=== PATIENT | female | born 1995 | race Caucasian/White ===

== ENCOUNTER 2020-06-21 10:28 | Emergency (ER) | payer OTHER ==
[2020-06-21 11:33] LABS: MUDS CUTOFF CONCENTRATIONS CUTOFF CONC BELOW:
--- NOTE | 2020-06-21 11:37 | XRAY Report ---
PROCEDURE: Chest 1 View X-Ray INDICATIONS: palpitations TECHNIQUE: One view of the chest was acquired. COMPARISON: None FINDINGS: Overlying EKG wires. Surgical changes and devices: None. Lungs and pleura: No pleural effusions or pneumothorax. Lungs are clear. Mediastinum: Mediastinal contours appear normal. Heart size is normal. Bones and chest wall: No suspicious bony lesions. Overlying soft tissues appear unremarkable. IMPRESSION: No evidence of a cardiopulmonary abnormality. Reviewed by: Lucas Peres DO on 06/21/2020 10:36 AM [facility] Approved by: Lucas Peres DO on 06/21/2020 10:36 AM [facility] Station ID: [id number]
[2020-06-21 11:41] LABS: BILIRUBIN,URINE NEGATIVE (NEGATIVE); CLARITY,URINE CLEAR (CLEAR); GLUCOSE, URINE (UA) NEGATIVE (NEGATIVE); KETONES,URINE (UA) NEGATIVE (NEGATIVE); LEUKOCYTE ESTERASE, URINE NEGATIVE (NEGATIVE); NITRITE,URINE NEGATIVE (NEGATIVE); OCCULT BLOOD,URINE NEGATIVE (NEGATIVE); PROTEIN,URINE NEGATIVE (NEGATIVE); UROBILINOGEN,URINE 0.2 (NORMAL) E.U./dL (NORMAL)
[2020-06-21 11:42] LABS: HCG UR QUAL NEGATIVE
[2020-06-21 11:48] LABS: AMPHETAMINE SCREEN,URINE NEGATIVE (NEGATIVE); BENZODIAZEPINES SCREEN, URINE NEGATIVE (NEGATIVE); COCAINE SCREEN URINE NEGATIVE (NEGATIVE); METHADONE SCREEN, URINE NEGATIVE (NEGATIVE); METHAMPHETAMINES SCREEN, URINE NEGATIVE (NEGATIVE); OPIATE SCREEN, URINE NEGATIVE (NEGATIVE); OXYCODONE SCREEN, URINE NEGATIVE (NEGATIVE); PROPOXYPHENE SCREEN, URINE NEGATIVE (NEGATIVE); TRICYCLIC ANTIDEPRESSANT,URINE NEGATIVE (NEGATIVE)
[2020-06-21 11:49] LABS: BASOPHILS % (AUTO) 0.4 %; EOSINOPHILS # (AUTO) 0.1 10^3/uL (0.0-0.7); EOSINOPHILS % (AUTO) 1.1 %; HGB - HEMOGLOBIN 13.8 g/dL (12.0-16.0); LYMPHOCYTES # (AUTO) 1.2 10^3/uL (1.5-3.5); LYMPHOCYTES % (AUTO) 13.4 %; MEAN CORPUSCULAR HGB CONC 32.9 g/dL (32.0-36.0); MEAN CORPUSCULAR VOLUME 91.1 fL (81.0-99.0); MEAN PLATELET VOLUME 9.5 fL (7.9-10.8); MONOCYTES # (AUTO) 0.7 10^3/uL (0.0-1.0); MONOCYTES % (AUTO) 7.2 %; NEUTROPHILS # (AUTO) 7.2 10^3/uL (1.5-6.6); NEUTROPHILS % (AUTO) 77.6 %; PLT - PLATELET COUNT 269 10^3/uL (130-450); RED CELL DISTRIBUTION WIDTH 13.7 % (12.0-15.0); WHITE BLOOD COUNT 9.2 x10^3/uL (4.8-10.8)
--- NOTE | 2020-06-21 12:03 | ED Physician Documentation ---
History of Present Illness - Stated complaint Stated Complaint: SOA/HIGH HEART RATE - Chief complaint Chief Complaint: Cardiac - History obtained from History obtained from: Patient - History of Present Illness Timing: Today Pain level max: 0 Pain level now: 0 - Additonal information Additional information: Patient is a 24-year-old female who presents to the emergency department stating she has had intermittent palpitations for years. She states that today her heart rate felt faster than usual and she felt mildly short of breath. She states this happens nearly daily. Sometimes lasts all day, sometimes a few minutes. She states she has never been worked up for this. She had been on Vyvanse in the past for ADHD, but is no longer taking this as of about 5 weeks ago. She also states that she used to drink heavily, but also quit all alcohol use about 5 weeks ago as well. She states that she is attempting to become . No recent surgeries or travel. No recent plane rides. 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 : None HEENT: None Psych: ADD/ADHD Musculoskeletal: None Derm: None - Past Surgical History Past Surgical History: Yes - Present Medications Home Medications: Ambulatory Orders Medication Instructions Recorded Confirmed No Known Home Medications 06/21/20 06/21/20 - Allergies Allergies/Adverse Reactions: Allergies Allergy/AdvReac Type Severity Reaction Status Date / Time No Known Drug Allergies Allergy Verified 06/21/20 10:39 - Social History Does the pt smoke?: No Smoking Status: Never smoker Does the pt drink ETOH?: No Does the pt have substance abuse?: No - Immunizations Immunizations are current?: Yes PD ED PE NORMAL - Vitals Vital signs reviewed: Yes - General General: Alert and oriented X 3, No acute distress - HEENT HEENT: Moist mucous membranes - Neck Neck: Supple, no meningeal sign - Cardiac Cardiac: RRR, Strong equal pulses - Respiratory Respiratory: No respiratory distress, Clear bilaterally - Abdomen Abdomen: Soft, Non tender, Non distended - Derm Derm: Warm and dry - Extremities Extremities: No edema, No calf tenderness / cord - Neuro Neuro: Alert and oriented X 3 - Psych Psych: Normal mood, Normal affect Results - Vitals Vitals: Vital Signs - 24 hr 06/21/20 06/21/20 06/21/20 10:35 11:02 12:26 Temperature 36.4 C L 37.1 C Heart Rate 124 H 114 H 101 H Respiratory 17 16 16 Rate Blood Pressure 154/107 H 148/98 H 129/94 H O2 Saturation 100 100 100 Oxygen O2 Source Room air - EKG (time done) 1228 Rate: Rate (enter#) (98) Rhythm: NSR [place]: Normal Intervals: Normal [place] QRS: Normal Ischemia: Normal ST segments - Labs Labs: Laboratory Tests 06/21/20 06/21/20 06/21/20 11:10 11:40 11:42 WBC 9.2 RBC 4.60 Hgb 13.8 Hct 41.9 MCV 91.1 MCH 30.0 MCHC 32.9 RDW 13.7 Plt Count 269 MPV 9.5 Neut # (Auto) 7.2 H Lymph # (Auto) 1.2 L [place] # (Auto) 0.7 Eos # (Auto) 0.1 Baso # (Auto) 0.0 Absolute Nucleated RBC 0.00 Nucleated RBC % 0.0 D-Dimer < 200.0 L Sodium Potassium Chloride Carbon Dioxide Anion Gap BUN Creatinine Estimated GFR (MDRD) Glucose Calcium Total Bilirubin AST ALT Alkaline Phosphatase Total Protein Albumin Globulin Albumin/Globulin Ratio Lipase TSH Free T4 Urine Color YELLOW Urine Clarity CLEAR Urine pH 6.0 Ur Specific [place] <=1.005 Urine Protein NEGATIVE Urine Glucose (UA) NEGATIVE Urine Ketones NEGATIVE Urine Occult Blood NEGATIVE Urine Nitrite NEGATIVE Urine Bilirubin NEGATIVE Urine Urobilinogen 0.2 (NORMAL) Ur Leukocyte Esterase NEGATIVE Ur Microscopic Review NOT INDICATED Urine Culture Comments NOT INDICATED Urine HCG, Qual NEGATIVE Urine Opiates Screen NEGATIVE Ur Oxycodone Screen NEGATIVE Urine Methadone Screen NEGATIVE Ur Propoxyphene Screen NEGATIVE Ur Barbiturates Screen NEGATIVE Ur Tricyclics Screen NEGATIVE Ur Phencyclidine Scrn NEGATIVE Ur Amphetamine Screen NEGATIVE U Methamphetamines Scrn NEGATIVE U Benzodiazepines Scrn NEGATIVE Urine Cocaine Screen NEGATIVE U Cannabinoids Screen NEGATIVE 06/21/20 06/21/20 11:42 11:42 WBC RBC Hgb Hct MCV MCH MCHC RDW Plt Count MPV Neut # (Auto) Lymph # (Auto) [place] # (Auto) Eos # (Auto) Baso # (Auto) Absolute Nucleated RBC Nucleated RBC % D-Dimer Sodium 138 Potassium 4.2 Chloride 98 L Carbon Dioxide 25 Anion Gap 15.0 H BUN 21 H Creatinine 1.0 Estimated GFR (MDRD) 68 L Glucose 102 H Calcium 9.8 Total Bilirubin 1.6 H AST 46 H ALT 41 Alkaline Phosphatase 46 Total Protein 8.5 H Albumin 5.0 Globulin 3.5 Albumin/Globulin Ratio 1.4 Lipase 29 TSH 1.31 Free T4 0.99 Urine Color Urine Clarity Urine pH Ur Specific [place] Urine Protein Urine Glucose (UA) Urine Ketones Urine Occult Blood Urine Nitrite Urine Bilirubin Urine Urobilinogen Ur Leukocyte Esterase Ur Microscopic Review Urine Culture Comments Urine HCG, Qual Urine Opiates Screen Ur Oxycodone Screen Urine Methadone Screen Ur Propoxyphene Screen Ur Barbiturates Screen Ur Tricyclics Screen Ur Phencyclidine Scrn Ur Amphetamine Screen U Methamphetamines Scrn U Benzodiazepines Scrn Urine Cocaine Screen U Cannabinoids Screen - Rads (name of study) cxr Radiology: Prelim report reviewed, EMP read contemporaneously, See rad report (no acute findings) PD MEDICAL DECISION MAKING - ED course Complexity details: reviewed results, re-evaluated patient, considered differential, d/w patient ED course: 24-year-old female with tachycardia, unclear etiology. No evidence of acute PE. Normal thyroid. Normal laboratory testing. No acute findings on EKG or chest x-ray. Patient is well-appearing, nontoxic. Afebrile. No hypoxia. No chest pain. No shortness of breath. No calf swelling. No evidence of DVT. We will have her follow-up with her doctor for further care. No arrhythmias on telemetry. Patient counseled regarding signs and symptoms for which I believe and urgent re-evaluation would be necessary. Patient with good understanding of and agreement to plan and is comfortable going home at this time This document was made in part using voice recognition software. While efforts are made to proofread this document, sound alike and grammatical errors may occur. Departure - Departure Disposition: 01 Home, Self Care Clinical Impression: Palpitations, Tachycardia Condition: Good Instructions: ED Palpitations Follow-Up: [facility] [Provider Group] [facility] [Provider Group] - Within 1 week Comments: The cause of your symptoms is unclear. Follow-up with the [employer] base for further care. Return if you worsen. You will likely need an echocardiogram, Holter/teletypesetter monitor, and possibly a referral to cardiology for further work- up. Your EKG, chest x-ray and laboratory testing do not show any acute abnormalities today. I would avoid stimulants such as coffee, energy drinks while you are awaiting further work-up. Discharge Date/Time: 06/21/20 14:05
[2020-06-21 12:06] LABS: ALBUMIN/GLOBULIN RATIO 1.4 (1.0-2.2); BILIRUBIN,TOTAL 1.6 mg/dL (0.2-1.0); CALCIUM 9.8 mg/dL (8.5-10.3); TOTAL PROTEIN 8.5 g/dL (6.7-8.2)
[2020-06-21 12:20] LABS: THYROID STIMULATING HORMONE 1.31 uIU/mL (0.34-5.60)
[2020-06-21 12:22] LABS: FREE T4 (FREE THYROXINE) 0.99 ng/dL (0.58-1.64)
[2020-06-21 12:27] VITALS: BP 129/94
== END 2020-06-21 14:05 | disposition home or self-care (01) ==
LOC: ED 10:28
DX: R00.2 Palpitations (principal); R00.0 Tachycardia, unspecified
CPT/HCPCS: 36415; 80053; 80306; 81001; 81003; 81025; 83690; 84439; 84443; 85025; 85379; 87086; 93005; 99284

== ENCOUNTER 2020-06-22 10:22 | Emergency (ER) | payer OTHER ==
--- NOTE | 2020-06-22 11:51 | ED Physician Documentation ---
History of Present Illness - Stated complaint Stated Complaint: SOA/HIGH PULSE - Chief complaint Chief Complaint: General - History obtained from History obtained from: Patient - Additonal information Additional information: Pt comes to the emergency department for elevated heart rate and dyspnea. Patient was just seen here yesterday for this, and she states she is mainly concerned because she found [place] and is not sure what to do. The patient denies any worsening of her symptoms. She had a full work-up yesterday which was unremarkable. Her heart rate here is in the 80s. Review of Systems Ten Systems: 10 systems reviewed and negative Constitutional: reports: Reviewed and negative Eyes: reports: Reviewed and negative Ears: reports: Reviewed and negative Nose: reports: Reviewed and negative Throat: reports: Reviewed and negative Cardiac: reports: Palpitations Respiratory: reports: Dyspnea GI: reports: Reviewed and negative : reports: Reviewed and negative Skin: reports: Reviewed and negative Musculoskeletal: reports: Reviewed and negative Neurologic: reports: Reviewed and negative Psychiatric: reports: Reviewed and negative Endocrine: reports: Reviewed and negative Immunocompromised: reports: Reviewed and negative PD PAST MEDICAL HISTORY - Past Medical History Cardiovascular: None Respiratory: None Neuro: Other Endocrine/Autoimmune: None GI: None 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 HEENT: None Psych: ADD/ADHD Musculoskeletal: None Derm: None - Past Surgical History Past Surgical History: Yes - Present Medications Home Medications: Ambulatory Orders Medication Instructions Recorded Confirmed Acetaminophen [Tylenol] 1 - 2 tab PO DAILY PRN 06/22/20 06/22/20 - Allergies Allergies/Adverse Reactions: Allergies Allergy/AdvReac Type Severity Reaction Status Date / Time No Known Drug Allergies Allergy Verified 06/22/20 10:32 - Social History Does the pt smoke?: No Smoking Status: Never smoker Does the pt drink ETOH?: No Does the pt have substance abuse?: No - Immunizations Immunizations are current?: Yes PD ED PE NORMAL - Vitals Vital signs reviewed: Yes - General General: Alert and oriented X 3, No acute distress - HEENT HEENT: Atraumatic, PERRL, EOMI, Moist mucous membranes - Neck Neck: Supple, no meningeal sign - Cardiac Cardiac: RRR, No murmur, Strong equal pulses - Respiratory Respiratory: No respiratory distress (Patient is sitting in bed talking comfortably, without labored respirations.), Clear bilaterally - Abdomen Abdomen: Soft, Non tender, Non distended - Derm Derm: Warm and dry - Extremities Extremities: No deformity - Neuro Neuro: Alert and oriented X 3 - Psych Psych: Normal mood, Normal affect Results - Vitals Vitals: Oxygen O2 Source Room air PD MEDICAL DECISION MAKING - ED course Complexity details: considered differential, d/w patient ED course: I discussed with the patient that she continues to display no evidence of an acute or emergent condition at this time. We did review the pt's discharge instructions, which contained follow-up for family practice at the [facility], [place] Pt states she will call the [facility] today. I do not find indication for any further work-up today. We have discussed the usual indications for return. Departure - Departure Disposition: 01 Home, Self Care Clinical Impression: Palpitations Condition: Stable Follow-Up: Jovani Vazquez MD [Credentialed Staff Provider] - Solomon Tellez MD [Provider Admit Priv/Credential] - Katarzyna Arredondo MD [Credentialed Staff Provider] - BIPIN CROFT MD [Provider Admit Priv/Credential] - Gianluca Tony MD [Provider Admit Priv/Credential] - Discharge Date/Time: 06/22/20 12:00
[2020-06-22 11:56] VITALS: BP 119/88
== END 2020-06-22 12:00 | disposition home or self-care (01) ==
LOC: ED 10:22
DX: R00.2 Palpitations (principal)
CPT/HCPCS: 99282; 99283

== ENCOUNTER 2020-07-22 10:15 | Outpatient (CLI) | payer OTHER | END 2020-07-22 10:16 | disposition home or self-care (01) | LOC: DI 10:15 | PROVIDERS: ATTEND Physician Assistant Medical | DX: R07.9 Chest pain, unspecified (principal); R00.2 Palpitations; R06.09 Other forms of dyspnea; I07.1 Rheumatic tricuspid insufficiency | CPT/HCPCS: 93306 ==

== ENCOUNTER 2020-07-23 08:02 | Outpatient (CLI) | payer OTHER ==
--- NOTE | 2020-07-23 10:42 | CARDIAC PROCEDURE NOTE ---
DATE OF SERVICE: 07/23/2020 Physician: Carola Chan MD, [facility] INDICATION: Exertional dyspnea, chest pain, palpitations. CARDIAC RISK FACTORS: None known.. DESCRIPTION OF PROCEDURE: After signing informed consent, the patient underwent a Nino-protocol treadmill stress test. No cardiac imaging was ordered with this test. RESTING HEART RATE: 75 (the patient took her Propranolol 20 mg dose this morning). PEAK HEART RATE: 164 (83% predicted maximum heart rate for age). RESTING BLOOD PRESSURE: 128/86. PEAK BLOOD PRESSURE: 185/86. The patient exercised for 8 minutes and 37 seconds on a Nino-protocol treadmill stress test. She achieved a peak heart rate of 164 (83% PMHR) and 10.16 METs. The patient had no chest pain during exercise. The patient developed worsening shortness of breath at each stage of exertion. She reported her perceived exertion at 6-7/20 in stage I and 18-19/20 on the Felecia scale at peak. She said she exercised to exhaustion and was even nauseated at peak exercise. Oxygen saturation was normal at rest at 100% and began to drop in the second stage to 93%. In the third stage, her oxygen saturation dropped to 85% on room air and was 88% saturation at peak exercise. Her oxygen saturation recovered to >90 by 40 seconds of recovery. Heart rate was very slow to recover after exercise. At 5 minutes post-exercise, the heart rate was 102. This occurred, despite taking her usual morning Propranolol dose. Normal blood pressure response to exercise was seen. RESTING EKG: Normal sinus rhythm, rate 75, LVH voltage with inferolateral Q- waves seen. EKG AT PEAK: [address] segment depressions are seen inferiorly, and flattening of T-waves are seen laterally. SUMMARY: 1. Abnormal resting EKG suggesting LVH. 2. Fair to poor exercise tolerance. 3. Oxygen desaturation occurs at peak exercise and corresponded with extreme fatigue and nausea and a perceived exertion of 18-19/20 on the Felecia scale at peak. 4. Nonspecific ST segment changes occur with exercise, but abnormal T-wave flattening occurs with exercise, suggesting ischemia. This also correlated with the time of oxygen desaturation (hypoxia). IMPRESSION: 1. Abnormal stress test. 2. Oxygen desaturation with exercise. 3. Poor exercise tolerance with persistent tachycardia even 5 minutes after exercise. RECOMMENDATIONS: 1. Repeat cardiac stress testing with nuclear myocardia perfusion imaging to rule out coronary ischemia. 2. Consider pulmonary function tests to evaluate oxygen desaturation. 3. Consider Cardiology referral and Pulmonary referral. cc: Vanda King PA-C TD: 07/23/2020 10:17 MTDD
== END 2020-07-23 08:03 | disposition home or self-care (01) ==
LOC: DI 08:02
PROVIDERS: ATTEND Physician Assistant Medical
DX: R94.39 Abnormal result of other cardiovascular function study (principal); R00.0 Tachycardia, unspecified

== ENCOUNTER 2020-08-25 13:28 | Outpatient (CLI) | payer OTHER | END 2020-08-25 13:29 | disposition home or self-care (01) | LOC: RT 13:28 | PROVIDERS: ATTEND Physician Assistant Medical | DX: R06.09 Other forms of dyspnea (principal); R00.2 Palpitations; R09.02 Hypoxemia; R94.39 Abnormal result of other cardiovascular function study | CPT/HCPCS: 94010; 94727; 94729 ==

== ENCOUNTER 2020-08-26 09:04 | Outpatient (CLI) | payer OTHER ==
[2020-08-26] MEDS ORDERED: REGADENOSON 0.4 MG/5 ML SYRINGE IVP ONE ×2 (10:32→18:13)
[2020-08-26] MEDS ORDERED: AMINOPHYLLINE 500 MG/20 ML VIAL ONE (10:32)
--- NOTE | 2020-08-26 12:00 | CARDIAC PROCEDURE NOTE ---
DATE OF SERVICE: 08/26/2020 Physician: Carola Chan MD, [facility] INDICATION: Previous abnormal stress test, tachycardia, palpitations. CARDIAC RISK FACTORS: None known. DESCRIPTION OF PROCEDURE: After signing informed consent, the patient underwent a Lexiscan pharmaceutical stress test with nuclear myocardial perfusion imaging. RESTING HEART RATE: 74. PEAK HEART RATE: 129. RESTING BLOOD PRESSURE: 118/81. PEAK BLOOD PRESSURE: 133/87. Lexiscan was infused per protocol. The patient developed brief flushing, shortness of breath, and chest pain rated 5/10. All symptoms resolved spontaneously in under 30 seconds. Oxygen saturation was 98-100% on room air throughout the test. RESTING EKG: Normal sinus rhythm, LVH voltage with inferolateral Q-waves seen. EKG AT PEAK: No new ST-segment or T-wave changes develop during this pharmaceutical stress. SUMMARY 1. Abnormal resting EKG suggesting LVH. 2. No ischemic changes developed by EKG criteria. 3. No desaturation occurs with pharmaceutical stress. 4. Nuclear images were reported separately and showed: A fixed perfusion defect of the septum, felt to be breast attenuation artifact because septal contraction is normal. LVEF is >70%. IMPRESSION: 1. Normal stress test. 2. Shortness of air is likely related to her episodes of paroxysmal tachycardia. RECOMMENDATIONS: Consider Cardiology referral. cc: Vanda King PA-C TD: 08/26/2020 11:59 MTDD
--- NOTE | 2020-08-27 14:01 | Nuclear Medicine Report ---
PROCEDURE: Rest and pharmacological stress myocardial perfusion SPECT with gated imaging and ejection fraction INDICATIONS: ABN STRESS TEST, TACHYCARDIA,PALPITIONS, DYSPNEA RADIOPHARMACEUTICAL: 14.2 mCi Tc-99m Myoview IV at rest and 39.7 mCi Tc-99m Myoview IV at peak exerc ise. [id number] was performed. TECHNIQUE: Radiopharmaceutical was injected at peak stress test, and also at rest. SPECT images wer e obtained. SPECT myocardial perfusion images were displayed in short axis, horizontal long axis, an d vertical long axis views. Gated images were reviewed using Auto[employer] software. COMPARISON: None available. FINDINGS: Raw data: There is good myocardial labeling by radiotracer. No significant motion artifacts. Lung- to-heart ratio is 0.45 (normal is less than 0.46 for tetrafosmin tracer). Left ventricle function: Gated images demonstrate normal left ventricle wall thickening. No segment al wall motion abnormality. No transient ischemic dilation; TID is 0.88 (normal less than 1.3). The left ventricle resting end-diastolic volume is normal. Left ventricle stress ejection fraction is > 70%; normal values are above 45%. Myocardial perfusion: There is a moderate size, [id number] severe, fixed defect in the septu m, most likely caused by breast attenuation artifact. No reversible perfusion defects to suggest myoc ardial ischemia. IMPRESSION: 1. Probably normal myocardial perfusion images. There is a moderate size, [id number] severe, fixed defect in the septum, most likely caused by breast attenuation artifact. Subendocardial infarct of the septum is felt less likely. 2. Normal left ventricular volume and systolic function. Septum contracts normally. 3. Please correlate with stress EKG result. PQRS ATTESTATIONS: Measure 322 - Is this imaging test primarily performed on a low-risk surgery patient for preoperative evaluation within 30 days preceding their low-risk non-cardiac surgery? Low-risk surgery is defined as cardiac or myocardial infarction less than 1%, including (but not limited to) endoscopic pr ocedures, superficial procedures, cataract surgery, and excisional breast surgery: Answer: No Measure 323 - Is this imaging test performed primarily for the monitoring of an asymptomatic patient who had percutaneous coronary intervention on the visit date or within 2 years of the visit date? An swer: No Measure 324 - Is this imaging test performed primarily for the initial detection and risk assessment on an asymptomatic, low coronary heart disease patient? Low CHD risk definition = clinicians should consider the maximum number of available patient factors used to estimate risk based on [place] (A TP III criteria), typically age, gender, diabetes, smoking status, and use of blood pressure medicati on, and integrate age appropriate estimates for missing elements, such as LDL or standard blood press ure. Answer: No Reviewed by: Jasmin Crane MD on 08/27/2020 1:59 PM PDT Approved by: Jasmin Crane MD on 08/27/2020 1:59 PM PDT Station ID: [id number]
== END 2020-08-26 09:05 | disposition home or self-care (01) ==
LOC: DI 09:04
PROVIDERS: ATTEND Physician Assistant Medical
DX: R94.39 Abnormal result of other cardiovascular function study (principal); R00.2 Palpitations; R06.09 Other forms of dyspnea; I47.9 Paroxysmal tachycardia, unspecified
CPT/HCPCS: 78452; 93017; A9500; J2785

== ENCOUNTER 2021-02-17 12:55 | Outpatient (CLI) | payer OTHER ==
--- NOTE | 2021-02-17 14:12 | CT Report ---
PROCEDURE: HEAD WO INDICATIONS: DIZZINESS AND GIDDINESS TECHNIQUE: Noncontrast 4.5 mm thick angled axial sections acquired from the foramen magnum to the vertex. For r adiation dose reduction, the following was used: automated exposure control, adjustment of mA and/or kV according to patient size. COMPARISON: None. FINDINGS: Image quality: There is streak artifact seen through the skull base. CSF spaces: Basal cisterns are patent. No extra-axial fluid collections. Ventricles are normal in size and shape. Brain: No midline shift. No intracranial masses or hemorrhage. Flor-white matter interface is norm al. Skull and face: Calvarium and visualized facial bones are intact, without suspicious lesions. Sinuses: Visualized sinuses and mastoids are clear. IMPRESSION: Normal noncontrast head CT, without an imaging explanation found for the patient's prese nting symptoms. Reviewed by: Pedro Luis Day MD on 02/17/2021 1:11 PM [facility] Approved by: Pedro Luis Day MD on 02/17/2021 1:11 PM [facility] Station ID: [id number]
== END 2021-02-17 12:56 | disposition home or self-care (01) ==
LOC: DI 12:55
PROVIDERS: ATTEND Internal Medicine
DX: R42 Dizziness and giddiness (principal)